=== PATIENT | female | born 2000 | race African-American/Black ===

== ENCOUNTER 2019-03-18 20:31 | Emergency (ER) | payer MEDICAID ==
[~2019-03-18] VITALS: Ht 160 cm; Wt 81.8 kg
[2019-03-18 20:55] VITALS: Ht 160 cm; Wt 81.8 kg
[2019-03-18] MEDS ORDERED: UNK MUSCLE RELAXER (20:56)
[2019-03-18] MEDS ORDERED: UNK ANTIDEPRESSANT (20:57)
[2019-03-18 21:24] LABS: APPEARANCE CLEAR (CLEAR); BACTERIA MANY /hpf (NEGATIVE); BILIRUBIN NEGATIVE (NEGATIVE); COLOR YELLOW (YELLOW); EPITHELIAL CELLS 0-5 /hpf (0-5); GLUCOSE NEGATIVE (NEGATIVE); HCG URINE NEGATIVE (NEGATIVE); KETONE NEGATIVE (NEGATIVE); NITRITE POSITIVE (NEGATIVE); PROTEIN TRACE mg/dL (NEGATIVE); UROBILINOGEN NORMAL (NORMAL)
[2019-03-18 21:25] LABS: MUCUS <1+ /lpf (NONE SEEN)
[2019-03-18 21:45] LABS: BASOPHILS 0.1 % (0-2); EOSINOPHILS 0 % (0-7); HEMATOCRIT 34.5 % (36.0-48.0); HEMOGLOBIN 11.2 g/dL (12-16); IMMATURE GRANULOCYTES 0.2 % (0-5); LYMPHOCYTES 11.1 % (15-50); MCH 28.6 pg (26.0-34.0); MCHC 32.5 g/dL (31.0-37.0); MCV 88.2 fL (80.0-100.0); MEAN PLATELET VOLUME 10.7 fL (7.4-10.4); MONOCYTES 10.4 % (2-11); NEUTROPHILS 78.2 % (40-80); PLATELET COUNT 292 10x3/uL (130-400); RBC 3.91 10x6/uL (4.00-5.40)
[2019-03-18 21:58] LABS: ANION GAP 11.4 mmol/L (8-16); CALCIUM 8.1 mg/dL (8.5-10.1); CARBON DIOXIDE 28.7 mmol/L (21.0-32.0); CREATININE - SERUM 1.1 mg/dL (0.6-1.3); POTASSIUM - SERUM 3.1 mmol/L (3.5-5.1)
[2019-03-18 22:11] LABS: ALBUMIN 3.1 g/dL (3.4-5.0); BILIRUBIN - TOTAL 0.43 mg/dL (0.2-1.3); PROTEIN - SERUM 7.3 g/dL (6.4-8.2)
[2019-03-18] MEDS ORDERED: OMNICEF300 MG PO (22:31)
[2019-03-18 23:30] VITALS: BP 124/56
== END 2019-03-18 23:30 | disposition home or self-care (01) ==
LOC: D.ER 20:31
PROVIDERS: Family Medicine
DX: N39.0 Urinary tract infection, site not specified (principal); R05 Cough; R51 Headache